=== PATIENT | male | born 1960 | race Caucasian/White ===

== ENCOUNTER 2017-01-18 20:58 | Emergency (ER) | payer OTHER | END 2017-01-19 00:35 | disposition home or self-care (01) | LOC: ER1 20:58 | DX: S99.921A Unspecified injury of right foot, initial encounter (principal); M79.671 Pain in right foot; V42.5XXA Car driver injured in collision with two- or three-wheeled motor vehicle in traffic accident, initial encounter; Y93.89 Activity, other specified; Y92.410 Unspecified street and highway as the place of occurrence of the external cause | CPT/HCPCS: 71010; 73630; 99284 ==

== ENCOUNTER 2017-02-04 10:43 | Emergency (ER) | payer OTHER | END 2017-02-04 13:15 | disposition home or self-care (01) | LOC: ER1 10:43 | DX: M54.41 Lumbago with sciatica, right side (principal); G89.29 Other chronic pain | CPT/HCPCS: 72131; 73502; 81001; 96372; 99284; J1100; J1885 ==

== ENCOUNTER → 2020-09-30 | Outpatient (CLI) | payer OTHER ==
[~2020-09-30] MED LIST: ALEVE220 M1 PO; CO Q-1010 MG PO; DAILY VITAMIN1 EAC2 PO; ELIQUIS 2.5 MG2.5 MG PO; HYDROCODON-ACE1 EAC2 PO; OSTEO BI-FLEX1 EAC1 PO; TYLENOL 500 MG500 MG PO; VITAMIN C500 M2 PO
[2020-09-30 10:24] LABS: HEMOGLOBIN 15.1 gm/dl (14.0-17.5); RED BLOOD COUNT 5.14 M/UL (4.20-5.50); WHITE BLOOD COUNT 7.3 K/UL (4.5-11.0)
[2020-09-30 10:49] LABS: BUN/CREATININE RATIO 17 (0-10)
== END ==
LOC: EDSTATUS 09:00 → OPSV2 09:00
PROVIDERS: Orthopaedic Surgery
DX: Z01.818 Encounter for other preprocedural examination (principal); M16.11 Unilateral primary osteoarthritis, right hip
CPT/HCPCS: 36415; 71046; 80048; 81001; 85025; 87081; 93005

== ENCOUNTER → 2020-10-04 | Outpatient (CLI) | payer OTHER ==
[2020-10-04 12:28] LABS: BUN/CREATININE RATIO 23 (0-10)
== END ==
LOC: LAB 11:35
PROVIDERS: Orthopaedic Surgery
DX: M19.90 Unspecified osteoarthritis, unspecified site (principal)
CPT/HCPCS: 36415; 80048; 86850; 86900; 86901

== ENCOUNTER 2020-10-05 05:46 | Day surgery (SDC) | payer OTHER ==
[~2020-10-05] VITALS: Ht 172.7 cm; Wt 102.1 kg
[2020-10-05] MEDS ORDERED: ALEVE220 M1 PO (06:17)
[2020-10-05] MEDS ORDERED: TYLENOL 500 MG500 MG PO (06:17)
[2020-10-05] MEDS ORDERED: CO Q-1010 MG PO (06:18)
[2020-10-05] MEDS ORDERED: OSTEO BI-FLEX1 EAC1 PO (06:18)
[2020-10-05] MEDS ORDERED: VITAMIN C500 M2 PO (06:18)
[2020-10-05] MEDS ORDERED: DAILY VITAMIN1 EAC2 PO (06:19)
[2020-10-05] MEDS ORDERED: HYDROCODON-ACE1 EAC2 PO (11:03)
[2020-10-06 03:29] LABS: RED BLOOD COUNT 4.21 M/UL (4.20-5.50); WHITE BLOOD COUNT 13.7 K/UL (4.5-11.0)
[2020-10-06 03:38] LABS: HEMOGLOBIN 12.4 gm/dl (14.0-17.5)
[2020-10-06 03:53] LABS: BUN/CREATININE RATIO 11 (0-10)
[2020-10-06] MEDS ORDERED: ELIQUIS 2.5 MG2.5 MG PO (11:12)
[2020-10-06] MEDS ORDERED: HYDROCODON-ACE1 EAC2 PO (12:47)
[2020-10-07] MEDS ORDERED: ELIQUIS 2.5 MG2.5 MG PO (11:39)
== END 2020-10-06 13:44 | disposition home or self-care (01) ==
LOC: OR 05:46 → M/S 13:53 → OR 10-06 13:44
PROVIDERS: Orthopaedic Surgery
DX: M16.11 Unilateral primary osteoarthritis, right hip (principal); G89.29 Other chronic pain; J45.909 Unspecified asthma, uncomplicated; N20.0 Calculus of kidney; Z87.891 Personal history of nicotine dependence; Z20.822 Contact with and (suspected) exposure to COVID-19
CPT/HCPCS: 36415; 73502; 76000; 80048; 85025; 97116; 97162; 97166; 97535; C1776; J0592; J0690; J1100; J1170; J2001; J2250; J2704; J2710; J2795; J3370; J7050; J7120

== ENCOUNTER → 2022-02-23 | Outpatient (CLI) | payer OTHER ==
[2022-02-23 11:04] LABS: HEMOGLOBIN 13.9 gm/dl (14.0-17.5); RED BLOOD COUNT 4.92 M/UL (4.20-5.50); WHITE BLOOD COUNT 4.6 K/UL (4.5-11.0)
[2022-02-23 11:27] LABS: BUN/CREATININE RATIO 22 (0-10)
[2022-02-24 08:22] LABS: RHEUMATOID ARTHRITIS FACTOR <10.0 IU/mL (<14.0)
== END ==
LOC: LAB 10:38
PROVIDERS: Emergency Medicine
DX: R53.83 Other fatigue (principal); M15.8 Other polyosteoarthritis; Z12.5 Encounter for screening for malignant neoplasm of prostate
CPT/HCPCS: 36415; 80053; 84443; 84550; 85025; 86038; 86140; 86431; G0103

== ENCOUNTER → 2022-03-26 | Outpatient (CLI) | payer OTHER ==
[2022-03-26 09:03] LABS: HEMOGLOBIN 14.9 gm/dl (14.0-17.5); RED BLOOD COUNT 5.1 M/UL (4.20-5.50)
[2022-03-26 09:25] LABS: BUN/CREATININE RATIO 24 (0-10)
[2022-03-27 11:15] LABS: CHOLESTEROL, TOTAL 165 mg/dL (100-199); HDL SIZE 9.5 nm (>=9.2); HDL-C 52 mg/dL (>39); HDL-P (TOTAL) 38.1 umol/L (>=30.5); LARGE HDL-P 5.9 umol/L (>=4.8); LARGE VLDL-P 8.4 nmol/L (<=2.7); LDL SIZE 21.4 nm (>20.5); LDL SIZE 21.4 nm (>=20.8); LDL-C 83 mg/dL (0-99); LDL-P 771 nmol/L (<1000); LP-IR SCORE 60 (<=45); SMALL LDL-P 399 nmol/L (<=527); TRIGLYCERIDES 178 mg/dL (0-149); VLDL SIZE 58.2 nm (<=46.6)
== END ==
LOC: LAB 08:39
PROVIDERS: Emergency Medicine
DX: Z00.01 Encounter for general adult medical examination with abnormal findings (principal); M25.511 Pain in right shoulder; M13.811 Other specified arthritis, right shoulder; G56.01 Carpal tunnel syndrome, right upper limb; M19.011 Primary osteoarthritis, right shoulder
CPT/HCPCS: 36415; 73030; 80053; 80061; 83704; 85025